=== PATIENT | male | born 1985 | race Caucasian/White ===

== ENCOUNTER 2016-12-28 19:52 | Emergency (ER) | payer BC ==
[~2016-12-28] VITALS: Ht 182.9 cm; Wt 73.0 kg
[2016-12-28 20:01] VITALS: Ht 182.9 cm; Wt 73.0 kg
[2016-12-28 21:14] LABS: BASOPHILS % 0.4 % (0.0-2.0); EOSINOPHILS # 0.1 10^3/ul (0.0-0.5); EOSINOPHILS % 0.5 % (0.0-7.0); HEMATOCRIT 39.9 % (42.0-52.0); HEMOGLOBIN 14.1 g/dl (14.0-18.0); LYMPHOCYTES # 0.8 10^3/ul (0.8-2.9); LYMPHOCYTES % 6.9 % (15.0-51.0); MEAN CORPUSCULAR HEMOGLOBIN 33.7 pg (29.0-33.0); MEAN CORPUSCULAR HGB CONC 35.3 g/dl (32.0-37.0); MEAN CORPUSCULAR VOLUME 95.2 fl (82.0-101.0); MONOCYTES % 9.1 % (0.0-11.0); NEUTROPHIL # 9.1 10^3/ul (1.6-7.5); NEUTROPHILS % 82.6 % (39.0-77.0); PLATELET COUNT 209 10^3/UL (140-415); RED BLOOD COUNT 4.19 10^6/ul (4.70-6.10); RED CELL DISTRIBUTION WIDTH 11.3 % (11.5-14.5); WHITE BLOOD COUNT 11.1 10^3/ul (4.8-10.8)
[2016-12-28 21:26] LABS: BARBITURATES Negative (NEGATIVE); BENZODIAZEPINES Negative (NEGATIVE); CANNABINOIDS Positive (NEGATIVE); COCAINE Negative (NEGATIVE); OPIATES Negative (NEGATIVE)
[2016-12-28 21:31] LABS: ALANINE AMINOTRANSFERASE 87 IU/L (13-69); ALBUMIN 4.7 g/dl (3.3-4.9); ALBUMIN/GLOBULIN RATIO 1.88; ALKALINE PHOSPHATASE 62 IU/L (42-121); ANION GAP 19 (8-16); ASPARTATE AMINO TRANSFERASE 115 IU/L (15-46); BILIRUBIN,INDIRECT 0.8 mg/dl (0-1.1); BILIRUBIN,TOTAL 0.8 mg/dl (0.2-1.3); BLOOD UREA NITROGEN 15 mg/dl (7-20); CALCIUM 9.3 mg/dl (8.4-10.2); CARBON DIOXIDE 27 mmol/L (21-31); CHLORIDE 100 mmol/L (97-110); CREATININE 0.73 mg/dl (0.61-1.24); GLUCOSE 162 mg/dl (70-220); SODIUM 142 mmol/L (135-144); TOTAL PROTEIN 7.2 g/dl (6.1-8.1)
[2016-12-28 21:40] LABS: ACETAMINOPHEN < 10.0 ug/ml (10.0-30.0); ETHANOL < 10.0 mg/dl; SALICYLATE < 1.0 mg/dl (5.0-30.0)
--- NOTE | 2016-12-28 22:09 | ERD ---
ER Documentation Chief Complaint Date/Time DATE: 12/28/16 TIME: 22:06 Chief Complaint [address] Argument with mom. [place] [address]. Hx of Bipolar. HPI This is a 31-year-old male with a history of bipolar disorder with paranoia. The patient states that he just got home and was relaxing and not expecting his mother to come over. He says he has a tumultuous relationship with his mother. He says she came over started complaining about how messy his house is. He said they have been got an argument. He reports that there were yelling at each other and he wanted to show her how strong he was. He said he took a cord from his headphones and wrapped around his neck and pulled it quickly and tight. The cord snapped. He said he was not trying to kill himself or harm himself he was she showing her how strong he was he states. He states he is not suicidal or homicidal. The patient takes Adderall as a prescription for ADHD. ROS All systems reviewed and are negative except as per history of present illness. Medications Home Meds Unable to Obtain Active Prescriptions or Reported Meds Allergies Allergies: Coded Allergies: No Known Allergy (Unverified , 12/28/16) PMhx/Soc Medical and Surgical Hx: pt denies Surgical Hx History of Surgery: No Anesthesia Reaction: No Hx Neurological Disorder: No Hx Respiratory Disorders: No Hx Cardiac Disorders: No Hx Psychiatric Problems: Yes (BIPOLAR, ADHD) Hx Miscellaneous Medical Probl: No Hx Alcohol Use: Yes Hx Substance Use: No Hx Tobacco Use: No Smoking Status: Never smoker FmHx Family History: No coronary disease Physical Exam Vitals Vital Signs Date Time Temp Pulse Resp B/P Pulse Ox O2 Delivery O2 Flow Rate FiO2 12/28/16 20:46 87 20 128/79 99 Room Air 12/28/16 20:01 98.0 86 18 130/79 99 Physical Exam Const: Well-developed, well-nourished Head: Atraumatic, normocephalic Eyes: Normal Conjunctiva, PERRLA, EOMI, normal sclera, no nystagmus ENT: Normal External Ears, Nose and Mouth, moist mucus membranes. Neck: Full range of motion. No meningismus, no lymphadenopathy. Resp: Clear to auscultation bilaterally, no wheezing, rhonchi, rales Cardio: Regular rate and rhythm, no murmurs, S1 S2 present Abd: Soft, non tender x 4, non distended. Normal bowel sounds, no guarding or rebound, no pulsitile abdominal masses or bruits Skin: No petechiae or rashes, no ecchymosis , no maculopapular rash Back: No midline or flank tenderness Ext: No cyanosis, or edema, FROM x 4, normal inspection, neurovascularly intact x 4 Neur: Awake and alert, STR 5/5 x 4, sensation intact x 4, no focal findings, cerebellum intact Psych: Normal Mood and Affect, is very calm and polite and cooperative. Denies suicidal homicidal ideation Result Diagram: 12/28/16205112/28/162051 Results 24 hrs Laboratory Tests Test 12/28/16 20:38 12/28/16 20:52 Urine Opiates Screen Negative Urine Barbiturates Negative Urine Amphetamines Screen Positive Urine Benzodiazepines Screen Negative Urine Cocaine Screen Negative Urine Cannabinoids Positive White Blood Count 11.110^3/ul Red Blood Count 4.1910^6/ul Hemoglobin 14.1g/dl Hematocrit 39.9% Mean Corpuscular Volume 95.2fl Mean Corpuscular Hemoglobin 33.7pg Mean Corpuscular Hemoglobin Concent 35.3g/dl Red Cell Distribution Width 11.3% Platelet Count 71280^3/UL Mean Platelet Volume 11.0fl Neutrophils % 82.6% Lymphocytes % 6.9% Monocytes % 9.1% Eosinophils % 0.5% Basophils % 0.4% Nucleated Red Blood Cells % 0.0/100WBC Neutrophils # 9.110^3/ul Lymphocytes # 0.810^3/ul Monocytes # 1.010^3/ul Eosinophils # 0.110^3/ul Basophils # 0.010^3/ul Nucleated Red Blood Cells # 0.010^3/ul Sodium Level 142mmol/L Potassium Level 4.0mmol/L Chloride Level 100mmol/L Carbon Dioxide Level 27mmol/L Anion Gap 19 Blood Urea Nitrogen 15mg/dl Creatinine 0.73mg/dl Glucose Level 162mg/dl Calcium Level 9.3mg/dl Total Bilirubin 0.8mg/dl Direct Bilirubin 0.00mg/dl Indirect Bilirubin 0.8mg/dl Aspartate Amino Transf (AST/SGOT) 115IU/L Alanine Aminotransferase (ALT/SGPT) 87IU/L Alkaline Phosphatase 62IU/L Total Protein 7.2g/dl Albumin 4.7g/dl Globulin 2.50g/dl Albumin/Globulin Ratio 1.88 Salicylates Level < 1.0mg/dl Acetaminophen Level < 10.0ug/ml Ethyl Alcohol Level < 10.0mg/dl Procedures/MDM [employer] per the patient on a 5150 hold. I do not think the patient is a harm to himself or anyone else. I will have telemetry psychiatrist evaluate him to try to remove the 5150 hold and discharge him home Spoke with Dr. donald telemetry psychiatry. He states the patient is free to be discharged home he is removing the 5150 Departure Diagnosis: Primary Impression: Bipolar 1 disorder Additional Impression: Anger reaction Condition: Stable MERRY SHARP DO Dec 28, 2016 22:09
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
[2016-12-28 22:41] VITALS: BP 126/77; PULSE 77; RESP 20
== END 2016-12-28 22:42 | disposition home or self-care (01) ==
LOC: E/R 19:52
DX: F31.9 Bipolar disorder, unspecified (principal); R45.4 Irritability and anger
CPT/HCPCS: 36415; 80053; 80306; 80307; 85025; 99284